=== PATIENT | female | born 1980 | race Caucasian/White ===

== ENCOUNTER 2017-11-17 10:06 | Emergency (ER) | payer OTHER ==
[~2017-11-17] VITALS: Ht 165.1 cm; Wt 66.3 kg
[2017-11-17 10:08] VITALS: BP 126/85
[2017-11-17] MEDS ORDERED: ALBU0.63 NEB (10:26)
== END 2017-11-17 10:36 | disposition home or self-care (01) ==
LOC: ED 10:30
DX: H65.03 Acute serous otitis media, bilateral (principal); J01.00 Acute maxillary sinusitis, unspecified; H10.023 Other mucopurulent conjunctivitis, bilateral; J45.909 Unspecified asthma, uncomplicated
CPT/HCPCS: 99283